=== PATIENT | male | born 1975 | race Caucasian/White ===

== ENCOUNTER 2023-01-10 16:31 | Emergency (ER) | payer OTHER ==
[~2023-01-10] VITALS: Ht 180.3 cm; Wt 72.6 kg
--- NOTE | 2023-01-10 17:00 | NUR ---
THE PATIENT BIBS FOR C/O RIGHT SIDED FLANK PAIN RADIATING TO RIGHT ABDOMEN SINCE ER. THE PATIENT RATES PAIN 10/. WILL CONTINUE TO MONITOR THE PATIENT.
--- NOTE | 2023-01-10 17:10 | NUR ---
URINE COLLECTED AND SENT TO THE LAB
[2023-01-10] MEDS ORDERED: KETOROLAC TROMETHAMINE INJ 30 MG/ML VIAL ONE ×2 (17:15→19:20)
--- NOTE | 2023-01-10 17:20 | NUR ---
THE PATIENT IS TAKEN TO CT
--- NOTE | 2023-01-10 17:25 | NUR ---
Note indiaabhay in EDM - 01/10/23 at 1817 by JOYCE DALILA FLORES FROM [facility] FOR G-TUBE PLACEMENT FOR DYSPHAGIA. THE PATIENT IS ALERT TO SELF. DENIES PAIN. IN ROOM AIR AND DENIES SOB. RESPIRATION REGULAR AND UNLABORED. WILL CONTINUE TO MONITOR THE PATIENT.
[2023-01-10] MEDS ORDERED: IV NS 0.9% 1,000 ML BAG IV ONE (17:30)
[2023-01-10] MEDS ORDERED: KETOROLAC TROMETHAMINE INJ 30 MG/ML VIAL IV ONE ×2 (17:30→19:30)
[2023-01-10] MEDS ORDERED: IV NS 0.9% 1,000 ML IV ONE (18:00)
[2023-01-10 18:20] LABS: BILIRUBIN,URINE 1+ (NEGATIVE); COLOR,URINE YELLOW (YELLOW); LEUKOCYTE ESTERASE ,URINE NEGATIVE (NEGATIVE); NITRITE, URINE NEGATIVE (NEGATIVE); PROTEIN,URINE NEGATIVE (NEGATIVE); UGLUCOSE NEGATIVE (NEGATIVE); UROBILINOGEN,URINE 0.2 EU/dL (0.2)
[2023-01-10 18:26] LABS: CALCIUM, SERUM 9.3 mg/dL (8.5-10.1); POTASSIUM 4.2 mmol/L (3.5-5.1)
[2023-01-10 18:28] LABS: BASOPHILS % (AUTO) 0.2 % (0.0-2.0); EOSINOPHILS % (AUTO) 0.2 % (0.0-6.0); HEMATOCRIT 43 % (39-51); HEMOGLOBIN 14.2 g/dL (13.5-17.5); LYMPHOCYTES # (AUTO) 0.9 K/uL (0.8-4.8); LYMPHOCYTES % (AUTO) 6.4 % (20.0-44.0); MEAN CORPUSCULAR HGB CONC 33 g/dl (31.0-36.0); MEAN CORPUSCULAR VOLUME 95 fL (80-96); MONOCYTES # (AUTO) 0.9 K/uL (0.1-1.30); MONOCYTES % (AUTO) 6.4 % (2.0-12.0); NEUTROPHILS # (AUTO) 12.1 K/uL (1.8-8.9); NEUTROPHILS % (AUTO) 86.8 % (43.0-81.0); PLATELET COUNT (AUTO) 172 K/uL (150-450)
[2023-01-10 18:32] LABS: BACTERIA,URINE None seen /HPF (None Seen); MUCUS,URINE Few /LPF (None Seen); RBC,URINE 21-50 /HPF (0-2); SQUAMOUS EPITHELIAL CELL,UR 0-2 /HPF (None Seen); WBC,URINE 0-2 /HPF (0-3)
[2023-01-10] MEDS ORDERED: IBUP-1953 PO (19:01)
[2023-01-10] MEDS ORDERED: TAMS-12 PO (19:01)
[2023-01-10] MEDS ORDERED: HYDR-4279 PO (19:01)
[2023-01-10 19:30] VITALS: BP 135/79
--- NOTE | 2023-01-10 19:30 | NUR ---
Patient discharged to home in stable condition. rx Written and verbal after care instructions given. Patient verbalizes understanding of instruction. IV removed. Catheter intact and site benign. Pressure and 4x4 applied to site. No bleeding noted.
== END 2023-01-10 19:31 | disposition home or self-care (01) ==
LOC: ER 16:31
DX: N20.0 Calculus of kidney (principal); Z60.2 Problems related to living alone; Z79.899 Other long term (current) drug therapy
CPT/HCPCS: 99285; 74176; 96374; 96361; 96376; 85025; 80048; 81001; 36415; J1885 ×2; J7030 ×2